=== PATIENT | male | born 2000 | race Caucasian/White ===

== ENCOUNTER 2021-07-01 07:40 | Emergency (ER) | payer OTHER ==
[~2021-07-01] VITALS: Ht 190.5 cm; Wt 86.0 kg
[2021-07-01 07:45] VITALS: BP 135/68
[2021-07-01 10:54] LABS: HEPATITIS B SURFACE ANTIGEN NEGATIVE
[2021-07-01 11:24] LABS: HEPATITIS A AB IGM NEGATIVE (NEGATIVE)
== END 2021-07-01 08:48 | disposition home or self-care (01) ==
LOC: ER 08:06
DX: Z20.2 Contact with and (suspected) exposure to infections with a predominantly sexual mode of transmission (principal); Z98.890 Other specified postprocedural states
CPT/HCPCS: 36415; 86705; 86709; 86803; 87340; 99283